=== PATIENT | male | born 1970 | race Hispanic/Latino ===

== ENCOUNTER 2019-12-13 19:02 | Inpatient (IN) | payer BC ==
[~2019-12-13] VITALS: Ht 172.7 cm; Wt 87.1 kg
--- OUTSIDE RECORDS SUMMARY | 2019-12-13 19:06 | XMS REPORT ---
Author Author [facility] Address Unknown Phone Unavailable Care Team Providers Care Medical Artist Name Role Phone YANIRA TURPIN Unavailable Unavailable Problems This patient has no known problems. Allergies, Adverse Reactions, Alerts This patient has no known allergies or adverse reactions. Medications This patient has no known medications. Results Test Description Test Time Test Comments Text Results Atomic Results Result Comments CT ABDOMEN/PELVIS W 2019 11:35:00 [place] [address] Patient Name: CATRACHITO HOYT MR #: [id number] : 1970 Age/Sex: 49/M Req #: [id number] Adm Physician: Ordered by: YANIRA TURPIN DO Report #: [id number] Location: CT Room/Bed: Procedure: [id number] CT/CT ABDOMEN/PELVIS W Exam Date: 11/16/19 Exam Time: 0940 REPORT STATUS: Signed EXAM: CT Abdomen and Pelvis WITH intravenous contrast INDICATION: Abdominal distention COMPARISON: None. TECHNIQUE: Abdomen and pelvis were scanned utilizing a multidetector helical scanner from the lung base to the pubic symphysis after administration of IV contrast. Coronal and sagittal reformations were obtained. Routine protocol was performed. Scan was performed during portal venous phase. IV CONTRAST: 100mL of Isovue 370 ORAL CONTRAST: Water RADIATION DOSE: Total DLP: 517.1 mGy*cm Dose modulation, iterative reconstruction, and/or weight based adjustment of the mA/kV was utilized to reduce the radiation dose to as low as reasonably achievable. FINDINGS: LOWER THORAX: Normal. HEPATOBILIARY: Diffuse hepatic steatosis. No focal liver lesion. No biliary ductal dilation. Unremarkable gallbladder. SPLEEN: No splenomegaly. PANCREAS: No focal masses or ductal dilatation. ADRENALS: No adrenal nodules. KIDNEYS/URETERS: No hydronephrosis, stones, or solid mass lesions. PELVIC ORGANS/BLADDER: Coarse calcifications of the prostate. PERITONEUM / RETROPERITONEUM: No free air or fluid. There is a 4.2 x 3.7 cm retroperitoneal cystic lesion situated just anterior to the bifurcation of the inferior vena cava. The lesion measures simple fluid attenuation and possibly represents a lymphangioma. LYMPH NODES: No lymphadenopathy. VESSELS: Unremarkable. GI TRACT: Severe sigmoid diverticulosis. No CT evidence of diverticulitis. No abnormal bowel thickening. No bowel obstruction. Normal appendix. BONES AND SOFT TISSUES: No acute osseous injury. No suspicious lytic or blastic lesions. Mild degenerative changes of the visualized spine. IMPRESSION: Diffuse hepatic steatosis. Severe sigmoid diverticulosis without CT evidence of diverticulitis. 4.2 x 3.7 cm retroperitoneal simple cystic lesion, possibly a lymphangioma. Signed by: Andrey Betancourt MD on 2019 11:44 AM Dictated By: ANDREY BETANCOURT MD 1144 Transcribed By: KRISTEN on 11/16/19 1144 COPY TO: YANIRA TURPIN PELVIS COMPLETE NON OB 2019-11-05 10:44:00 [place] [address] Patient Name: Flora HOYT MR #: [id number] : 1970 Age/Sex: 48/M Req #: [id number] Adm Physician: Ordered by: YANIRA TURPIN DO Report #: [id number] Location: US Room/Bed: Procedure: [id number] US/US PELVIS COMPLETE NON OB Exam Date: 11/05/19 Exam Time: 0950 REPORT STATUS: Signed Pelvic ultrasound. History: Left lower quad rant pain. Comparison: None available. Discussion: Transabdominal evaluation of the pelvis was performed in the transverse and longitudinal planes. The bladder measures 151 mL in volume. Bilateral ureteral jets are identified. Prostate does not appear enlarged measuring 27 mL in volume. IMPRESSION: Normal pelvic ultrasound. Signed by: Victorino Dixon on 11/05/2019 10:45 AM Dictated By: VICTORINO DIXON MD 44 Transcribed By: KRISTEN on 11/05/191044 COPY TO: YANIRA TURPIN DO US ABDOMEN COMPLETE 2019-11-05 10:17:00 [place] [address] Patient Name: Flora HOYT MR #: [id number] : 1970 Age/Sex: 48/M Req #: [id number] [facility] Physician: Ordered by: YANIRA TURPIN DO Report #: [id number] Location: Room/Bed: Procedure: [id number] US/US ABDOMEN COMPLETE Exam Date: 11/05/19 Exam Time: 09 REPORT STATUS: Signed Abdominal ultrasound. History: Left lower quadrant pain. Comparison: None available. Discussion: Transverse and longitudinal images of the abdomen were obtained demonstrating a liver of normal size but diffusely increased echogenicity measuring 16 cm in length. There is no focal hepatic abnormality. The portal vein is patent with hepatopetal flow and is within normal limits measuring 8 mm in diameter. The biliary tree is within normal limits with the common bile duct measuring 3 mm in diameter. The gallbladder is contains multiple shadowing stones without wall thickening or pericholecystic fluid. The sonographic Tobar's sign was negative. The kidneys are normal in size and echogenicity bilaterally without evidence of hydronephrosis, stones, or mass. The right kidney measures 11.2 cm and the left kidney measures 11.5 cm in length. The spleen is normal in size and appearance measuring 10.9 cm in length. The pancreas and IVC were obscured by overlying bowel gas. The abdominal aorta is within normal limits. There is no evidence of free fluid. IMPRESSION: 1. Cholelithiasis without sonographic evidence of cholecystitis. 2. Pancreas and IVC are not visible. Otherwise unremarkable exam. Signed by: Victorino Dixon on 11/05/2019 10:23 AM Dictated By: VICTORINO DIXON MD 1023 Transcribed By: KRISTEN on 11/05/19 1023 COPY TO: YANIRA TURPIN DO
[2019-12-13] MEDS ORDERED: MORPHINE SULFATE 2 MG/ML SYR 1ML IV STA (20:27)
[2019-12-13] MEDS ORDERED: ONDANSETRON HCL INJ 2MG/ML 2ML 2 MG/ML VIAL IV STA (20:27)
[2019-12-13] MEDS ORDERED: PANTOPRAZOLE 40 MG 10ML VIAL IV STA (20:27)
[2019-12-13] MEDS ORDERED: DICYCLOMINE HCL 20 MG/2 ML VIAL IM ONE (20:30)
[2019-12-13 20:54] LABS: BASOPHILS # (AUTO) 0.1 (0.0-0.1); BASOPHILS % 0.8 % (0.0-1.0); EOSINOPHILS # (AUTO) 0.8 (0.0-0.4); EOSINOPHILS % 5.5 % (0.0-6.0); HEMATOCRIT 50.3 % (38.2-49.6); HEMOGLOBIN 17.2 g/dL (14.0-18.0); LYMPHOCYTES % 13.9 % (18.0-39.1); MEAN CORPUSCULAR HEMOGLOBIN 29.9 pg (28-32); MEAN CORPUSCULAR HGB CONC 34.2 g/dL (31-35); MEAN CORPUSCULAR VOLUME 87.3 fL (81-99); MONOCYTES # (AUTO) 0.6 (0.2-0.8); NEUTROPHILS # (AUTO) 10.7 (2.1-6.9); NEUTROPHILS % 75.4 % (38.7-80.0); PLATELET COUNT 181 x10e3/uL (140-360); RED BLOOD COUNT 5.76 x10e6/uL (4.3-5.7)
[2019-12-13 21:08] LABS: AMYLASE 54 U/L (25-125); LIPASE 26 U/L (8-78)
[2019-12-13 21:10] LABS: ALANINE AMINOTRANSFERASE 36 IU/L (0-55); ALBUMIN 4.3 g/dL (3.5-5.0); ALBUMIN/GLOBULIN RATIO 1.3 (0.8-2.0); ALKALINE PHOSPHATASE 138 IU/L (40-150); ANION GAP 15.8 mmol/L (8-16); BLOOD UREA NITROGEN 9 mg/dL (7-26); BUN/CREATININE RATIO 10 (6-25); CALCIUM 9.8 mg/dL (8.4-10.2); CARBON DIOXIDE 23 mmol/L (22-29); CHLORIDE 106 mmol/L (98-107); CREATINE KINASE 103 IU/L (30-200); EST GLOMERULAR FILTRATION RATE > 60 ML/MIN (60-); GLUCOSE 154 mg/dL (74-118); POTASSIUM 3.8 mmol/L (3.5-5.1); SODIUM 141 mmol/L (136-145)
--- NOTE | 2019-12-13 22:17 | Diagnostic Imaging Report ---
HISTORY: Right upper quadrant pain ^ruq pains ^Y TECHNIQUE: Selected images from limited abdominal ultrasound provided for INTERPRETATION: COMPARISON: CT abdomen 11/16/2019. FINDINGS: Pancreas: Not visualized due to bowel gas. Liver: Measures 17.4 cm in sagittal plane. The echotexture is mildly increased. No mass in the visualized portions. Portal Vein: Measures 0.8 cm. Proper directional flow on spectral Doppler interrogation. Intrahepatic bile ducts: Normal Gallbladder: Present and contains multiple gallstones clustered in the neck. The gallbladder is distended. No gallbladder wall thickening or pericholecystic fluid. Sonographic Tobar sign is positive. CBD: 0.6 cm. Right Kidney: 11.9 cm in greatest length. The echotexture is normal. There is no evidence for mass. There is no collecting system dilatation or evidence of obstruction. No renal calculi evident. No adjacent free fluid or fluid collections. Visualized IVC and aorta are normal. There is no free fluid. IMPRESSION: 1. Cholelithiasis and distended gallbladder. Clustered gallstones in the gallbladder neck may be impacted. 2. Mild steatosis. Signed by: Dr. Shweta Bell MD on 12/13/2019 10:15 PM
[2019-12-13] MEDS ORDERED: ONDANSETRON HCL INJ 2MG/ML 2ML 2 MG/ML VIAL IV PRN (23:00)
[2019-12-13] MEDS ORDERED: MORPHINE SULFATE 2 MG/ML SYR 1ML IV PRN (23:00)
[2019-12-13] MEDS: PIPER-TAZ 3.375 GM / NS 50ML IV SCH (23:11)
[2019-12-14] VITALS (9 sets, daily range): BP systolic 113–139; BP diastolic 75–88
[2019-12-14] MEDS ORDERED: PIPER-TAZ 3.375 GM 50 ML IV SCH
[2019-12-14] MEDS ORDERED: PROMETHAZINE 25MG/ NS 50ML (IV) IV ONE (00:30)
[2019-12-14] MEDS ORDERED: OMEPRAZOLE PO (01:35)
[2019-12-14 01:37] LABS: BILIRUBIN,URINE NEGATIVE (NEGATIVE); CLARITY,URINE CLOUDY (CLEAR); COLOR,URINE YELLOW (YELLOW); KETONES,URINE TRACE (NEGATIVE); LEUKOCYTE ESTERASE ,URINE NEGATIVE (NEGATIVE); NITRITE,URINE NEGATIVE (NEGATIVE); PROTEIN,URINE DIPSTICK 3+ (NEGATIVE); URINE UROBILINOGEN 0.2 mg/dL (0.2 - 1)
[2019-12-14 01:48] LABS: AMORPHOUS SEDIMENT,URINE MANY (FEW); BACTERIA,URINE MODERATE /HPF; EPITHELIAL CELLS,URINE FEW /LPF; RBC,URINE 0-5 /HPF (0-5); WBC,URINE (MAN) 0-5 /HPF (0-5)
[2019-12-14] MEDS ORDERED: SODIUM CHLORIDE 0.9% 250ML 250 ML ONE (05:27)
[2019-12-14] MEDS: PIPER-TAZ 3.375 GM / NS 50ML IV SCH (06:28)
[2019-12-14 07:34] LABS: BASOPHILS % 0.2 % (0.0-1.0); EOSINOPHILS % 0.1 % (0.0-6.0); HEMATOCRIT 48.5 % (38.2-49.6); HEMOGLOBIN 16.8 g/dL (14.0-18.0); LYMPHOCYTES # (AUTO) 1.4 (1.0-3.2); LYMPHOCYTES % 6.1 % (18.0-39.1); MEAN CORPUSCULAR HEMOGLOBIN 30.3 pg (28-32); MEAN CORPUSCULAR HGB CONC 34.6 g/dL (31-35); MEAN CORPUSCULAR VOLUME 87.5 fL (81-99); MONOCYTES # (AUTO) 1.5 (0.2-0.8); MONOCYTES % 6.6 % (4.4-11.3); NEUTROPHILS # (AUTO) 19.4 (2.1-6.9); NEUTROPHILS % 86.5 % (38.7-80.0); PLATELET COUNT 176 x10e3/uL (140-360); RED BLOOD COUNT 5.54 x10e6/uL (4.3-5.7); RED CELL DISTRIBUTION WIDTH 13.2 % (11.7-14.4)
[2019-12-14 07:57] LABS: ALANINE AMINOTRANSFERASE 34 IU/L (0-55); ALBUMIN 4.2 g/dL (3.5-5.0); ALBUMIN/GLOBULIN RATIO 1.2 (0.8-2.0); ALKALINE PHOSPHATASE 125 IU/L (40-150); AMYLASE 49 U/L (25-125); ANION GAP 12.9 mmol/L (8-16); BLOOD UREA NITROGEN 9 mg/dL (7-26); BUN/CREATININE RATIO 11 (6-25); CALCIUM 9.3 mg/dL (8.4-10.2); CARBON DIOXIDE 22 mmol/L (22-29); CHLORIDE 106 mmol/L (98-107); CREATININE, SERUM 0.83 mg/dL (0.72-1.25); EST GLOMERULAR FILTRATION RATE > 60 ML/MIN (60-); GLUCOSE 144 mg/dL (74-118); LIPASE 18 U/L (8-78); POTASSIUM 3.9 mmol/L (3.5-5.1); SODIUM 137 mmol/L (136-145)
[2019-12-14 08:08] LABS: LYMPHOCYTES % (MANUAL) 4 % (19-48); MONOCYTES % (MANUAL) 4 % (3.4-9.0); NEUTROPHILS % (MANUAL) 92 % (40-74)
[2019-12-14] MEDS ORDERED: BUPIVACAINE 0.25% 30ML SDV INJ ONE (08:23)
--- NOTE | 2019-12-14 08:34 | Consultation ---
DATE OF CONSULTATION: REASON FOR CONSULTATION: Cholelithiasis, abdominal pain. HISTORY OF PRESENT ILLNESS: The patient is an otherwise healthy 49-year-old male admitted complaining of right upper quadrant and epigastric pain for several hours. He had a workup in the emergency room that revealed a distended gallbladder with multiple stones in the neck of the gallbladder and in the body of the gallbladder. Liver chemistries were normal. The white count was 14,000. The patient states that 2 weeks ago he had an episode of abdominal pain that was seen by his primary care physician. He had a CT scan that revealed diverticulosis and no diverticulitis and an ultrasound of the abdomen revealed gallstones, but no evidence of acute cholecystitis. The patient states that he has had some gastritis in the past for which he takes omeprazole p.r.n. He has had a similar episode in the past after he ate spicy foods. PAST MEDICAL HISTORY: As previously stated is unremarkable. PAST SURGICAL HISTORY: There is no previous surgery. MEDICATIONS: He takes omeprazole p.r.n. for gastritis. ALLERGIES: HE HAS NO KNOWN ALLERGIES. HABITS: He drinks and smokes. FAMILY HISTORY: His mother had cancer of the stomach. 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 REVIEW OF SYSTEMS: Remarkable for what has already been started. PHYSICAL EXAMINATION: GENERAL: Reveals a 49-year-old male in no acute distress. He complains of epigastric pain. HEAD, EYES, EARS, NOSE, AND THROAT: Unremarkable. LUNGS: Supple. The lungs are clear. HEART: Reveals regular sinus rhythm. ABDOMEN: Soft. There is some mild epigastric and right upper quadrant tenderness. There are no scars. No masses. EXTREMITIES: Reveal no clubbing, cyanosis, or edema. NEUROLOGICAL: Nonfocal. ASSESSMENT: Cholelithiasis, subacute cholecystitis with normal liver chemistries. PLAN: The plan is to proceed with laparoscopic cholecystectomy. The procedure, indication, benefits, and risks have been discussed with the patient and his , who gave informed consent. MD DEEPTI Moore/PRASHANT /[id number]
--- NOTE | 2019-12-14 08:36 | NUR ---
Dr. Marr was here to see pt and explained procedure to patient. Pt was consented for lap/greg. Pt being taken to OR at this time. Pt is aox4 and able to verbalize needs. Pt is NPO at this time.
[2019-12-14] MEDS ORDERED: IBUPROFEN 800MG/ 200ML 200 ML IV ONE (09:17)
[2019-12-14] MEDS ORDERED: METRONIDAZOLE 500MG/NS 100ML 100 ML IV ONE ×2 (09:29→09:31)
[2019-12-14] MEDS ORDERED: HYDROGEN PEROXIDE 120 ML BTL ONE (10:02)
[2019-12-14] MEDS ORDERED: SODIUM CHLORIDE 0.9% 1000ML 1,000 ML IV SCH (10:05)
[2019-12-14] MEDS ORDERED: CEFTRIAXONE SOD 1 GM/NS 50 ML 100 ML IV ONE (10:18)
--- NOTE | 2019-12-14 10:35 | Operative Report ---
DATE OF PROCEDURE: 12/14/2019 SURGEON: Júnior Marr MD PREOPERATIVE DIAGNOSES: Cholelithiasis, cholecystitis. POSTOPERATIVE DIAGNOSES: Cholelithiasis and gangrenous cholecystitis. PROCEDURE PERFORMED: Laparoscopic cholecystectomy. ANESTHESIA: General endotracheal. ESTIMATED BLOOD LOSS: Minimal. DRAINS: None. COMPLICATIONS: None. INDICATION AND FINDINGS: The patient is an otherwise healthy 49-year-old male who approximately 2 weeks or 3 weeks ago started having abdominal pains. He was seen by primary care, had a CAT scan that revealed diverticulosis without diverticulitis. An ultrasound of the abdomen revealed cholelithiasis without cholecystitis. The patient then persisted and had recurrent pain and he presented to the emergency room at [facility] where an ultrasound of right upper quadrant confirmed and showed again the presence of gallstones. There was no evidence of cholecystitis. His white count was 14,000. His liver chemistries were normal. INTRAOPERATIVE FINDINGS: Acute cholecystitis with gangrenous changes patchy in nature in the fundus of the gallbladder. There was no ductal dilatation. DESCRIPTION OF THE PROCEDURE: With the patient lying on the operative table in the supine position after administration of general anesthesia, he was prepped and draped for laparoscopic cholecystectomy. The procedure was begun by establishing the pneumoperitoneum in the umbilical site after stab wound was made in the location and saline drop test was performed. Pneumoperitoneum was insufflated to 15 mm of pressure and then the 10/11 trocar was placed in that location. Under direct vision, we placed a 10 mm also subxiphoid port and finally then we placed two lateral working ports 5 mm incision in the right upper quadrant midclavicular line and right anterior axillary line. The gallbladder was then retracted cephalad using grasping forceps and then dissection was then begun by decompressing the gallbladder and because he was tense and we could not grasp it well. After we did that, we went ahead and began the dissection high in the neck of the gallbladder to identify the cystic duct as well as the cystic artery. After identified those two structures well as the common duct, we transected the cystic duct and the cystic artery between titanium clips and then we proceeded to take the gallbladder down from the liver bed using electrocautery dissection. At some point, we entered the gallbladder where it was stuck to the liver. We then continued the dissection until we detached the gallbladder, placed in an Endobag, and removed through an umbilical port. There were several stones that were spilled and those were completely removed. We inspected the operative field. There was a part of the posterior wall of the gallbladder that had been stuck to the liver and that was excised and the remaining part of it was then electrocauterize and then minor oozing was cauterized. We irrigated the right upper quadrant and the gallbladder bed fossa. At this point, there was no bleeding. There was no bile leak, no apparent bowel injury. At this point, then we released the pneumoperitoneum and closed the wound using #0 Vicryl for the umbilical fascia and 3-0 Vicryl for the subcutaneous tissue as well as the subxiphoid port and then we infiltrated the umbilical fascia with plain 0.25% Marcaine as well as the skin of the ports set for the umbilical port and then we applied susi to all the ports. Sterile dressing was applied. The patient tolerated the procedure well, was taken to recovery room in stable condition. MD DEEPTI Moore/PRASHANT /[id number]
--- NOTE | 2019-12-14 11:00 | NUR ---
Pt returned from PACU at this time. Pt is aox4 and able to verbalize needs. Pt has 4 trochar sites to abdomen that are dry and intact.
[2019-12-14] MEDS: PANTOPRAZOLE 40 MG 10ML VIAL IV SCH (12:04)
[2019-12-14] MEDS: LACTATED RINGER'S 1,000 ML IV SCH ×3 (12:47→23:49)
[2019-12-14] MEDS: METRONIDAZOLE 500MG/NS 100ML 100 ML IV SCH ×2 (15:16→21:02)
[2019-12-14] MEDS: HYDROMORPHONE 1MG/1ML INJ IV PRN ×2 (15:16→19:40)
[2019-12-14] MEDS ORDERED: GLYCOPYRROLATE INJ 0.2 MG/ML VIAL ONE (18:15)
[2019-12-14] MEDS ORDERED: ACETAMINOPHEN 1000 MG/100 ML IV ONE (18:15)
[2019-12-14] MEDS ORDERED: FENTANYL CITRATE/PF 100MCG/2 ML INJ ONE (18:15)
[2019-12-14] MEDS ORDERED: DEXAMETHASONE SOD PHOS INJ 4 MG/ML VIAL ONE (18:15)
[2019-12-14] MEDS ORDERED: ONDANSETRON HCL INJ 2MG/ML 2ML 2 MG/ML VIAL ONE (18:15)
[2019-12-14] MEDS ORDERED: ROCURONIUM BROMIDE 10 MG/ML 5ML VIAL ONE (18:15)
[2019-12-14] MEDS ORDERED: MIDAZOLAM HCL 2 MG/2 ML VIAL ONE (18:15)
[2019-12-14] MEDS ORDERED: PROPOFOL IV EMULSION 10 MG/ML 20 ML VIAL ONE (18:15)
[2019-12-14] MEDS ORDERED: SEVOFLURANE INHAL SOLN 250 ML PEN BTL ONE (18:15)
[2019-12-14] MEDS ORDERED: LIDOCAINE HCL 2% LOCAL INJ 5 ML SDV VIAL INJ ONE (18:15)
[2019-12-14] MEDS ORDERED: NEOSTIGMINE 1 MG/ML 10ML VIAL ONE (18:15)
--- NOTE | 2019-12-14 19:14 | NUR ---
Received bedside report from day nurse. Patient sitting in recliner, no s/s of distress or c/o pain at this time. All safety measures in place. Family at bedside. Will continue to monitor.
[2019-12-14] MEDS: ONDANSETRON HCL INJ 2MG/ML 2ML 2 MG/ML VIAL IV PRN (19:40)
[2019-12-15] VITALS (8 sets, daily range): BP systolic 100–127; BP diastolic 65–80
[2019-12-15] MEDS: METRONIDAZOLE 500MG/NS 100ML 100 ML IV SCH ×4 (02:47→21:01)
[2019-12-15] MEDS: ONDANSETRON HCL INJ 2MG/ML 2ML 2 MG/ML VIAL IV PRN (02:50)
[2019-12-15] MEDS: HYDROMORPHONE 1MG/1ML INJ IV PRN ×2 (02:50→18:11)
[2019-12-15 05:38] LABS: BASOPHILS % 0.2 % (0.0-1.0); EOSINOPHILS # (AUTO) 0.3 (0.0-0.4); EOSINOPHILS % 1.8 % (0.0-6.0); HEMATOCRIT 39.8 % (38.2-49.6); HEMOGLOBIN 12.9 g/dL (14.0-18.0); LYMPHOCYTES % 13.5 % (18.0-39.1); MEAN CORPUSCULAR HEMOGLOBIN 29.8 pg (28-32); MEAN CORPUSCULAR HGB CONC 32.4 g/dL (31-35); MEAN CORPUSCULAR VOLUME 91.9 fL (81-99); MONOCYTES # (AUTO) 1.3 (0.2-0.8); MONOCYTES % 8.6 % (4.4-11.3); NEUTROPHILS # (AUTO) 11.1 (2.1-6.9); NEUTROPHILS % 75.4 % (38.7-80.0); PLATELET COUNT 123 x10e3/uL (140-360); RED BLOOD COUNT 4.33 x10e6/uL (4.3-5.7); RED CELL DISTRIBUTION WIDTH 13.8 % (11.7-14.4)
[2019-12-15 06:10] LABS: ALANINE AMINOTRANSFERASE 83 IU/L (0-55); ALKALINE PHOSPHATASE 83 IU/L (40-150); ANION GAP 8.8 mmol/L (8-16); BLOOD UREA NITROGEN 11 mg/dL (7-26); BUN/CREATININE RATIO 14 (6-25); CALCIUM 8.4 mg/dL (8.4-10.2); CARBON DIOXIDE 25 mmol/L (22-29); CHLORIDE 109 mmol/L (98-107); CREATININE, SERUM 0.81 mg/dL (0.72-1.25); EST GLOMERULAR FILTRATION RATE > 60 ML/MIN (60-); GLUCOSE 100 mg/dL (74-118); POTASSIUM 3.8 mmol/L (3.5-5.1); SODIUM 139 mmol/L (136-145)
--- NOTE | 2019-12-15 06:57 | NUR ---
Bedside report given to day nurse. Patient awake and resting in bed, no s/s of distress at this time. All safety measures in place. Family at bedside.
[2019-12-15] MEDS: LACTATED RINGER'S 1,000 ML IV SCH (07:02)
--- NOTE | 2019-12-15 07:29 | NUR ---
Pt received in bed with eyes closed. Pt has some pain to abdomen but states it is bearable at this time. Aldrich still in place with light yellow clear urine. 0 s/s of acute distress noted at this time.
[2019-12-15] MEDS: HYDROCODONE/APAP 7.5MG-325MG 1 EA TAB PO PRN ×3 (08:42→22:36)
[2019-12-15] MEDS: PANTOPRAZOLE 40 MG 10ML VIAL IV SCH (08:43)
--- NOTE | 2019-12-15 10:40 | NUR ---
Aldrich discontinued at this time per physician orders. Well tolerated by pt. Due to void in six hours.
[2019-12-15] MEDS: CEFTRIAXONE SOD 2 GM/NS 100 ML 100 ML IV SCH (11:00)
--- NOTE | 2019-12-15 19:08 | NUR ---
WALKING ROUNDS PERFORMED, RECEIVED PT LAYING SEMI FOWLERS IN BED, AAOX3, RR EVEN AND NON-LABORED, ON ROOM AIR. NO S/SX OF DISTRESS NOTED. X4 TROCAR SITES TO ANTERIOR ABD NOTED TO BE CDI. LEFT PT LAYING SEMI FOWLERS IN BED, BED IN LOW LOCKED POSITION, SIDE RAILS UPX2, CALL LIGHT AND PHONE WITHIN REACH. FAMILY AT BEDSIDE.
--- NOTE | 2019-12-15 22:52 | NUR ---
PT AMBULATING IN WHELAN, STEADY GAIT NOTED, FAMILY AT SIDE.
[2019-12-16] VITALS: BP 110/65
[2019-12-16] MEDS: METRONIDAZOLE 500MG/NS 100ML 100 ML IV SCH ×3 (03:18→14:51)
[2019-12-16] MEDS: HYDROCODONE/APAP 7.5MG-325MG 1 EA TAB PO PRN ×3 (03:22→16:26)
[2019-12-16 04:00] VITALS: BP 124/73
[2019-12-16 06:33] LABS: BASOPHILS # (AUTO) 0.1 (0.0-0.1); BASOPHILS % 0.5 % (0.0-1.0); EOSINOPHILS # (AUTO) 0.5 (0.0-0.4); EOSINOPHILS % 4.4 % (0.0-6.0); HEMOGLOBIN 13.3 g/dL (14.0-18.0); LYMPHOCYTES # (AUTO) 2.2 (1.0-3.2); LYMPHOCYTES % 19.8 % (18.0-39.1); MEAN CORPUSCULAR HEMOGLOBIN 29.8 pg (28-32); MEAN CORPUSCULAR HGB CONC 32.4 g/dL (31-35); MEAN CORPUSCULAR VOLUME 91.9 fL (81-99); MONOCYTES # (AUTO) 1.3 (0.2-0.8); MONOCYTES % 11.6 % (4.4-11.3); NEUTROPHILS % 63.3 % (38.7-80.0); PLATELET COUNT 128 x10e3/uL (140-360); RED BLOOD COUNT 4.46 x10e6/uL (4.3-5.7); RED CELL DISTRIBUTION WIDTH 13.4 % (11.7-14.4)
[2019-12-16 06:45] LABS: ALANINE AMINOTRANSFERASE 78 IU/L (0-55); ALKALINE PHOSPHATASE 91 IU/L (40-150); ANION GAP 9.8 mmol/L (8-16); BLOOD UREA NITROGEN 9 mg/dL (7-26); BUN/CREATININE RATIO 11 (6-25); CALCIUM 8.3 mg/dL (8.4-10.2); CARBON DIOXIDE 25 mmol/L (22-29); CHLORIDE 106 mmol/L (98-107); CREATININE, SERUM 0.81 mg/dL (0.72-1.25); EST GLOMERULAR FILTRATION RATE > 60 ML/MIN (60-); GLUCOSE 91 mg/dL (74-118); POTASSIUM 3.8 mmol/L (3.5-5.1); SODIUM 137 mmol/L (136-145)
--- NOTE | 2019-12-16 07:00 | NUR ---
RECEIVED PATIENT AWAKE RESTING IN BED NO S/S OF DISTRESS. BED LOW, WHEELS LOCKED, SIDE RAILS X2. CALL LIGHT IN REACH WILL CONTINUE TO MONITOR PATIENT.
[2019-12-16 08:29] VITALS: BP 126/85
[2019-12-16 09:04] VITALS: BP 126/85
[2019-12-16] MEDS ORDERED: ONDANSETRON HCL 4 MG ORAL DISINTEGRATING TAB PO PRN (09:45)
[2019-12-16] MEDS: CEFTRIAXONE SOD 2 GM/NS 100 ML 100 ML IV SCH (10:55)
[2019-12-16] MEDS ORDERED: PANTOPRAZOLE SOD 40 MG TABEC PO SCH (11:00)
--- NOTE | 2019-12-16 11:04 | NUR ---
PATIENT HAD BOWEL MOVEMENT.
[2019-12-16 12:04] VITALS: BP 127/79
--- NOTE | 2019-12-16 14:15 | NUR ---
Visit made by the Spiritual Care Department Pastoral Visitor, Christina Alicia. PV provided ashes for Davidson Saturday. Pastoral Visitor informed pt/family of the scope of [facility] and availability. ANI NOLAN [employer] Spiritual Care Department O: [phone]
[2019-12-16 16:31] VITALS: BP 132/87
[2019-12-16] MEDS ORDERED: TYLENOL WITH C1 EACH PO (16:46)
[2019-12-16] MEDS ORDERED: LEVAQUIN500 MG PO (16:46)
--- NOTE | 2019-12-16 17:50 | NUR ---
REMOVED IV. CATHETER TIPS INTACT AND PRESSURE DRESSING APPLIED.
--- NOTE | 2019-12-16 17:55 | NUR ---
PATIENT DISCHARGED FROM FACILITY. PATIENT GATHERED ALL PERSONAL BELONGINGS, DISCHARGE INSTRUCTIONS, AND FOLLOW UP INFORMATION. LEFT UNIT IN WHEELCHAIR AND WENT HOME VIA PRIVATE AUTO. NO S/S OF DISTRESS WHEN LEAVING FACILITY.
== END 2019-12-16 17:58 | disposition home or self-care (01) | DRG 419 ==
LOC: ER 19:02 → ERHOLD 22:51 → MED/SURG 12-14 00:42
PROC: 0FT44ZZ Resection of Gallbladder, Percutaneous Endoscopic Approach (ICD-10-PCS; principal; 2019-12-14 09:30)
DX: K80.00 Calculus of gallbladder with acute cholecystitis without obstruction (principal); K82.A1 Gangrene of gallbladder in cholecystitis; K29.70 Gastritis, unspecified, without bleeding; F17.200 Nicotine dependence, unspecified, uncomplicated
CPT/HCPCS: 36415; 76705; 80053; 81001; 82150; 82550; 82553; 82948; 83690; 84484; 85025; 88304; 93005; 99284; C1766; J0500; J0696; J1100; J1170; J2001; J2250; J2270; J2405; J2543; J2550; J2710; J3010; J7050; J7121

== ENCOUNTER 2024-02-07 10:28 | Observation (INO) | payer BC ==
[~2024-02-07] VITALS: Ht 172.7 cm; Wt 87.1 kg
[~2024-02-07 10:28] MED LIST: FENTANYL CITRATE/PF 100MCG/2 ML INJ ONE; LEVAQUIN500 MG PO; MIDAZOLAM HCL 2 MG/2 ML VIAL ONE; OMEPRAZOLE PO; TYLENOL WITH C1 EACH PO
[2024-02-07] MEDS ORDERED: ONDANSETRON HCL INJ 2MG/ML 2ML 2 MG/ML VIAL IV PRN ×3 (11:00→22:00)
[2024-02-07 11:03] LABS: BASOPHILS # (AUTO) 0.1 (0.0-0.1); BASOPHILS % 0.5 % (0.0-1.0); EOSINOPHILS # (AUTO) 0.2 (0.0-0.4); EOSINOPHILS % 2.1 % (0.0-6.0); HEMATOCRIT 45.7 % (38.2-49.6); HEMOGLOBIN 16.1 g/dL (14.0-18.0); LYMPHOCYTES # (AUTO) 1.3 (1.0-3.2); MEAN CORPUSCULAR HEMOGLOBIN 30.7 pg (28-32); MEAN CORPUSCULAR HGB CONC 35.2 g/dL (31-35); MONOCYTES # (AUTO) 0.7 (0.2-0.8); MONOCYTES % 6.3 % (4.4-11.3); NEUTROPHILS # (AUTO) 8.4 (2.1-6.9); NEUTROPHILS % 78.7 % (38.7-80.0); PLATELET COUNT 140 x10e3/uL (140-360); RED BLOOD COUNT 5.25 x10e6/uL (4.3-5.7); RED CELL DISTRIBUTION WIDTH 13.2 % (11.7-14.4)
[2024-02-07] MEDS: SODIUM CHLORIDE 0.9% 1000ML 1,000 ML IV STA (11:09)
[2024-02-07 11:18] LABS: BILIRUBIN,URINE NEGATIVE (NEGATIVE); CLARITY,URINE SL CLOUDY (CLEAR); COLOR,URINE YELLOW (YELLOW); GLUCOSE, URINE NEGATIVE (NEGATIVE); KETONES,URINE NEGATIVE (NEGATIVE); LEUKOCYTE ESTERASE ,URINE NEGATIVE (NEGATIVE); NITRITE,URINE NEGATIVE (NEGATIVE); PH,URINE 6 (5 - 7); PROTEIN,URINE DIPSTICK 2+ (NEGATIVE); URINE UROBILINOGEN 0.2 mg/dL (0.2 - 1)
[2024-02-07 11:20] LABS: BACTERIA,URINE FEW /HPF; EPITHELIAL CELLS,URINE FEW /LPF; MUCUS,URINE FEW (RARE); RBC,URINE >50 /HPF (0-5); WBC,URINE (MAN) 0-5 /HPF (0-5)
[2024-02-07 11:29] LABS: ALBUMIN 4.1 g/dL (3.5-5.0); ALBUMIN/GLOBULIN RATIO 1.5 (0.8-2.0); ANION GAP 13.8 mmol/L (8-16); BILIRUBIN,TOTAL 1.9 mg/dL (0.2-1.2); CALCIUM 9.1 mg/dL (8.4-10.2); CREATININE, SERUM 0.87 mg/dL (0.72-1.25); POTASSIUM 3.8 mmol/L (3.5-5.1); TOTAL PROTEIN 6.9 g/dL (6.5-8.1)
[2024-02-07] MEDS ORDERED: PIPERACILLIN/TAZOBACTAM 4.5 GM in SODIUM CHLORIDE 0.9% 100 ML IV ONE (13:45)
[2024-02-07] MEDS ORDERED: Morphine 4mg INJECTION 4 MG/ML INJ IV PRN ×2 (13:45→22:00)
[2024-02-07] MEDS ORDERED: SODIUM CHLORIDE 0.9% 1000ML 1,000 ML IV SCH (13:45)
[2024-02-07 13:53] VITALS: PULSE 78; RESP 18; O2SAT 96
[2024-02-07] MEDS ORDERED: Morphine 10mg syringe 10 MG/ML INJ ONE (15:51)
[2024-02-07] MEDS ORDERED: FENTANYL CITRATE/PF 100MCG/2 ML INJ ONE (15:51)
[2024-02-07 16:19] VITALS: BP 125/95; PULSE 73; RESP 17; TEMP 97.8; O2SAT 100
[2024-02-07 20:00] VITALS: BP 134/96; PULSE 72; RESP 18; TEMP 97.3; O2SAT 97
[2024-02-07 20:30] VITALS: BP 134/96; PULSE 72; RESP 18; TEMP 97.3; O2SAT 97
[2024-02-07 21:00] VITALS: BP 134/96; PULSE 72; RESP 18; TEMP 97.3; O2SAT 97
[2024-02-07] MEDS: SODIUM CHLORIDE 0.9% 1000ML 1,000 ML IV SCH (22:49)
[2024-02-08] VITALS (8 sets, daily range): BP systolic 116–136; BP diastolic 84–96; PULSE 71–81; RESP 17–18; TEMP 97.8–98.1; O2SAT 94–98
[2024-02-08 07:14] LABS: BASOPHILS # (AUTO) 0.1 (0.0-0.1); BASOPHILS % 0.8 % (0.0-1.0); EOSINOPHILS # (AUTO) 0.4 (0.0-0.4); EOSINOPHILS % 5.1 % (0.0-6.0); HEMATOCRIT 46.2 % (38.2-49.6); LYMPHOCYTES # (AUTO) 1.8 (1.0-3.2); LYMPHOCYTES % 25.2 % (18.0-39.1); MEAN CORPUSCULAR HEMOGLOBIN 30.4 pg (28-32); MEAN CORPUSCULAR HGB CONC 34.6 g/dL (31-35); MEAN CORPUSCULAR VOLUME 87.8 fL (81-99); MONOCYTES # (AUTO) 0.6 (0.2-0.8); MONOCYTES % 8.8 % (4.4-11.3); NEUTROPHILS # (AUTO) 4.4 (2.1-6.9); PLATELET COUNT 137 x10e3/uL (140-360); RED BLOOD COUNT 5.26 x10e6/uL (4.3-5.7); RED CELL DISTRIBUTION WIDTH 13.1 % (11.7-14.4); WHITE BLOOD COUNT 7.31 x10e3/uL (4.8-10.8)
[2024-02-08 07:48] LABS: ANION GAP 11.2 mmol/L (8-16); CALCIUM 8.9 mg/dL (8.4-10.2); CREATININE, SERUM 0.82 mg/dL (0.72-1.25); POTASSIUM 4.2 mmol/L (3.5-5.1)
[2024-02-08] MEDS ORDERED: PROPOFOL IV EMULSION 10 MG/ML 20 ML VIAL ONE (10:31)
[2024-02-08] MEDS ORDERED: KETOROLAC TROMETHAMINE 30 MG/ML VIAL ONE (10:31)
[2024-02-08] MEDS ORDERED: LIDOCAINE HCL 2% LOCAL INJ 5 ML SDV VIAL INJ ONE (10:31)
[2024-02-08] MEDS ORDERED: ONDANSETRON HCL INJ 2MG/ML 2ML 2 MG/ML VIAL ONE (10:31)
[2024-02-08] MEDS ORDERED: ROCURONIUM BROMIDE 10 MG/ML 5ML VIAL IV ONE (10:31)
[2024-02-08] MEDS ORDERED: METOCLOPRAMIDE HCL 10 MG/2ML VIAL ONE (10:31)
[2024-02-08] MEDS ORDERED: DEXAMETHASONE SOD PHOS INJ 4 MG/ML SDV ONE (10:31)
[2024-02-08] MEDS ORDERED: SEVOFLURANE INHAL SOLN 250 ML PEN BTL ONE (10:31)
[2024-02-08] MEDS ORDERED: CEFTRIAXONE 1 GM VIAL ONE (10:31)
[2024-02-08] MEDS ORDERED: SUCCINYLCHOLINE CHLORIDE 20 MG/ML 10ML VIAL ONE (10:31)
[2024-02-08] MEDS: HYDROCODONE/APAP 7.5MG-325MG 1 EA TAB PO PRN (13:53)
[2024-02-08] MEDS: KETOROLAC TROMETHAMINE 30 MG/ML VIAL IV PRN (17:03)
[2024-02-09] VITALS: BP 107/81; PULSE 74; RESP 18; TEMP 97.7; O2SAT 96
[2024-02-09 04:00] VITALS: BP 108/86; PULSE 72; RESP 18; TEMP 97.9; O2SAT 98
[2024-02-09 08:11] LABS: BASOPHILS % 0.3 % (0.0-1.0); EOSINOPHILS # (AUTO) 0.1 (0.0-0.4); EOSINOPHILS % 0.5 % (0.0-6.0); HEMATOCRIT 47.6 % (38.2-49.6); HEMOGLOBIN 15.4 g/dL (14.0-18.0); MEAN CORPUSCULAR HEMOGLOBIN 29.4 pg (28-32); MEAN CORPUSCULAR HGB CONC 32.4 g/dL (31-35); MONOCYTES # (AUTO) 0.9 (0.2-0.8); MONOCYTES % 7.7 % (4.4-11.3); NEUTROPHILS # (AUTO) 8.8 (2.1-6.9); NEUTROPHILS % 74.1 % (38.7-80.0); PLATELET COUNT 156 x10e3/uL (140-360); RED BLOOD COUNT 5.23 x10e6/uL (4.3-5.7); WHITE BLOOD COUNT 11.87 x10e3/uL (4.8-10.8)
[2024-02-09 08:27] VITALS: BP 124/88; PULSE 67; RESP 17; TEMP 97.9; O2SAT 97
[2024-02-09 09:00] VITALS: BP 124/88; PULSE 67; RESP 17; TEMP 97.9; O2SAT 97
[2024-02-09 12:42] VITALS: BP 122/92; PULSE 78; RESP 17; TEMP 97.9; O2SAT 97
[2024-02-09 16:15] VITALS: BP 119/84; PULSE 84; RESP 17; TEMP 98.2; O2SAT 98
== END 2024-02-09 20:00 | disposition home or self-care (01) ==
LOC: ER 10:51 → ERHOLD 13:46 → MED/SURG3 14:30
PROVIDERS: ADMIT Internal Medicine; ATTEND Internal Medicine
DX: K35.80 Unspecified acute appendicitis (principal); E78.5 Hyperlipidemia, unspecified; K21.9 Gastro-esophageal reflux disease without esophagitis; K57.30 Diverticulosis of large intestine without perforation or abscess without bleeding; F17.200 Nicotine dependence, unspecified, uncomplicated; Z11.52 Encounter for screening for COVID-19; Z90.49 Acquired absence of other specified parts of digestive tract; Z79.899 Other long term (current) drug therapy
CPT/HCPCS: 36415 ×3; 44970; 74177; 80048; 80053; 81001; 83690; 85025 ×3; 88304; 94799 ×2; 99284; C1766; G0378 ×3; J2270; J3010; U0002; J0330; J0696; J1100; J1885; J2001; J2405; J2765